=== PATIENT | female | born 1950 | race Caucasian/White ===

== ENCOUNTER 2016-09-09 07:57 | Inpatient (IN) | payer OTHER ==
[2016-07-22 11:51] VITALS: BMI 24.0
--- NOTE | 2016-07-22 12:25 | PAT Medication Instructions ---
Service Date Jul 22, 2016. Current Home Medication List Acetaminophen (Tylenol), 1,000 MG PO TID PRN for RN Arnica (Arnica Tincture), 1 DOSE TOP DAILY PRN for RN Ascorbic Acid (Vitamin C), 1,000 MG PO QAM Aspirin (Aspirin Ec), 81 MG PO QAM Atorvastatin (Lipitor), 20 MG PO QAM B-Complex Vitamins (Vitamin B Complex), 1 TAB PO QAM Calcium Carbonate-Vitamin D (Calcium + D), 1 TAB PO QAM Cyanocobalamin (Vitamin B12), 1,000 MCG PO QAM Esomeprazole Magnesium (Nexium), 40 MG PO QAM Fexofenadine Hcl (Kristen Allergy), 1 TAB PO QAM PRN for RN Hydrocodone/Acetaminophen 7.5MG/325MG ([place] 7.5MG/325MG), 1 TAB PO Q12H PRN for N Ibuprofen (Advil), 400 MG PO TID PRN for RN Methocarbamol (Robaxin), 750 MG PO QID PRN for RN Milk Thistle (Silybum Marianum (Milk Thistle), 250 MG PO QAM Misc Natural Products (Osteo Bi-Flex Advanced Do), 1 TAB PO QAM Nutritional Supplements (Estroven), 1 TAB PO QAM [place]-3 Fatty Acids (Fish Oil), 1 TAB PO QAM Valsartan/Hctz (Diovan Hct 320MG/12.5MG), 1 TAB PO QAM Venlafaxine Hcl (Venlafaxine Extended Rel), 75 MG PO TID Medication Instructions For Your Scheduled Surgery - Check with surgeon for instructions: Aspirin (Aspirin Ec), 81 MG PO QAM Ibuprofen (Advil), 400 MG PO TID PRN for RN - Hold the following medications 2 weeks prior to surgery: [place]-3 Fatty Acids (Fish Oil), 1 TAB PO QAM Milk Thistle (Silybum Marianum (Milk Thistle), 250 MG PO QAM - Hold the following medications 24 hours prior to surgery: Arnica (Arnica Tincture), 1 DOSE TOP DAILY PRN for RN - Hold the following medications the morning of surgery: Valsartan/Hctz (Diovan Hct 320MG/12.5MG), 1 TAB PO QAM Nutritional Supplements (Estroven), 1 TAB PO QAM Misc Natural Products (Osteo Bi-Flex Advanced Do), 1 TAB PO QAM Methocarbamol (Robaxin), 750 MG PO QID PRN for RN Fexofenadine Hcl (Kristen Allergy), 1 TAB PO QAM PRN for RN Cyanocobalamin (Vitamin B12), 1,000 MCG PO QAM B-Complex Vitamins (Vitamin B Complex), 1 TAB PO QAM Calcium Carbonate-Vitamin D (Calcium + D), 1 TAB PO QAM Ascorbic Acid (Vitamin C), 1,000 MG PO QAM - Take the following medications the morning of surgery with a sip of water: Venlafaxine Hcl (Venlafaxine Extended Rel), 75 MG PO TID Esomeprazole Magnesium (Nexium), 40 MG PO QAM Atorvastatin (Lipitor), 20 MG PO QAM Acetaminophen (Tylenol), 1,000 MG PO TID PRN for RN (if needed) Hydrocodone/Acetaminophen 7.5MG/325MG ([place] 7.5MG/325MG), 1 TAB PO Q12H PRN for N (okay to take up to 4 hours prior to surgery if needed) - Take the following medications as scheduled the night before surgery: Venlafaxine Hcl (Venlafaxine Extended Rel), 75 MG PO TID Methocarbamol (Robaxin), 750 MG PO QID PRN for RN (if needed) Fexofenadine Hcl (Kristen Allergy), 1 TAB PO QAM PRN for RN (if needed) Acetaminophen (Tylenol), 1,000 MG PO TID PRN for RN (if needed) Hydrocodone/Acetaminophen 7.5MG/325MG ([place] 7.5MG/325MG), 1 TAB PO Q12H PRN for N (if needed) If you have any questions please call us at [phone] (Heather Bergman PA-C) or [phone] or [phone]
--- NOTE | 2016-07-22 12:53 | DIAGNOSTIC IMAGING REPORT ---
CHEST 2 VIEWS ROUTINE CLINICAL HISTORY: Preoperative chest COMPARISON STUDY: No previous studies for comparison. FINDINGS: The cardiac and mediastinal contours are normal. There is no evidence of focal pulmonary consolidation. There is no evidence of failure. No pleural effusions are visualized.[ IMPRESSION: No active disease in the chest. Electronically signed by: Ramírez Trujillo M.D. 07/22/2016 12:51 PM
[2016-07-22 13:23] LABS: MANUAL MICROSCOPIC REQUIRED? NO; REVIEW REQ? NO; URINE APPEARANCE CLEAR (CLEAR); URINE BILIRUBIN NEG (NEG); URINE COLOR DK YELLOW; URINE NITRITE NEG (NEG); URINE SPECIFIC GRAVITY 1.013 (1.000-1.030); UROBILINOGEN NEG (NEG)
[2016-07-22 13:24] LABS: BASO % 0.3 %; BASO ABS # 0.03 K/uL (0-0.2); COMPLETE YES; HEMATOCRIT 35.8 % (37-47); IG% 0.2 %; LYMPH ABS # 2.04 K/uL (1.2-3.4); MEAN CELL VOLUME 96.5 fL (80-100); MEAN CORPUSCULAR HEMOGLOBIN 33.7 pg (25-34); MEAN CORPUSCULAR HGB CONC 34.9 g/dl (32-36); MEAN PLATELET VOLUME 8.7 fL (7.4-10.4); MONO % 7.1 %; NEUT % 70.4 %; PLATELET COUNT 410 K/uL (130-400); RED BLOOD COUNT 3.71 M/uL (4.2-5.4); WHITE BLOOD COUNT 9.72 K/uL (4.8-10.8)
[2016-07-22 13:32] LABS: PARTIAL THROMBOPLASTIN RATIO 0.9; PROTHROMBIN TIME (PATIENT) 10.5 SECONDS (9.0-12.0)
[2016-07-22 13:43] LABS: BUN/CREATININE RATIO 28.6 (10-20); CALCIUM 9.4 mg/dl (8.5-10.1); CREATININE 0.69 mg/dl (0.60-1.20); POTASSIUM 4.4 mmol/L (3.5-5.1)
--- NOTE | 2016-08-11 07:40 | HISTORY & PHYSICAL EXAMINATION ---
DATE OF ADMISSION: 08/12/2016 CHIEF COMPLAINT: Failed right shoulder hemiarthroplasty. HISTORY OF PRESENT ILLNESS: Sherita is a 65-year-old female who fell and injured her shoulder in February 2015. She was treated at an outside institution with a fracture hemiarthroplasty of the right shoulder. Unfortunately, the rotator cuff had failed and since had significant pain in the right shoulder. After over a year of conservative treatment, she elected to proceed with a removal of the hemiarthroplasty and conversion to reverse total shoulder arthroplasty. She understands the risks, benefits, alternatives to the procedure and has elected to proceed. PAST MEDICAL HISTORY: Significant for depression, hyperlipidemia, hypertension, spinal stenosis. PAST SURGICAL HISTORY: Significant for ruptured disc at L5, hammertoe correction of the right foot, right shoulder fracture or fracture hemiarthroplasty left carpal tunnel release and lumbar laminectomy. ALLERGIES: PREVACID, SULFA, PROTONIX. MEDICATIONS: Include vitamin B12 1000 mg daily, Nexium 40 mg daily, Kristen 180 mg as needed, Vicodin as needed for pain, methocarbamol 750 mg 4 times a day as needed, valsartan/HCTZ 320/12.5 daily, Effexor XR 75 mg 3 times a day, Lipitor 20 mg daily, and aspirin 81 mg daily. FAMILY HISTORY: Noncontributory. SOCIAL HISTORY: She is , has 3 more drinks a day and is moderately active. REVIEW OF SYSTEMS: The patient complains of right shoulder pain. All other pertinent review of systems are negative. PHYSICAL EXAMINATION: GENERAL: She is awake, alert and oriented x3. She is in no apparent distress. She is very pleasant. HEAD, EYES, EARS, NOSE, AND THROAT: Pupils are equal, round and reactive to light. Extraocular motion intact. Oral mucosa is pink and moist. VITAL SIGNS: Regular rate per radial pulse. LUNGS: Sarah symmetrically bilaterally with no audible breath sounds. ABDOMEN: Soft, nontender, nondistended. MUSCULOSKELETAL: On physical examination of the right shoulder, she does have a slight decreased active range of motion about 130 degrees of forward flexion and 30 degrees of abduction. She has 4/5 muscle strength with full can testing, 5/5 motion with external rotation. Negative bear hug and belly press test. She has a well-healed incision from previous surgery. No signs of infection. X-rays from an outside institution does show that she has significant superior migration of the humeral component and failure of the rotator cuff. It appears to be a [employer] Unite humeral prosthesis. IMPRESSION: Failed right shoulder hemiarthroplasty. PLAN: Will proceed with a conversion to a reverse total shoulder arthroplasty. Postoperatively, she will be placed in an arm sling and kept overnight for postoperative medical management.
--- NOTE | 2016-09-08 09:49 | HISTORY & PHYSICAL EXAMINATION ---
DATE OF ADMISSION: 09/09/2016 CHIEF COMPLAINT: Failed right shoulder hemiarthroplasty. HISTORY OF PRESENT ILLNESS: Sherita is a 65-year-old female who fell and injured her shoulder in February 2015. She was treated in an outside institution with the fracture hemiarthroplasty of the right shoulder. Unfortunately, the rotator cuff had failed and since has had significant pain in the right shoulder. After over a year of conservative treatment, she elected to proceed with a removal of hemiarthroplasty and conversion to reverse total shoulder arthroplasty. She understands the risks, benefits, alternatives to procedure and elected to proceed. PAST MEDICAL HISTORY: Significant for depression, hyperlipidemia, hypertension, spinal stenosis. PAST SURGICAL HISTORY: Significant for a ruptured disc at L5, hammertoe correction of the right foot, right shoulder fracture with fracture hemiarthroplasty, a left carpal tunnel release and lumbar laminectomy. ALLERGIES: PREVACID, SULFA, PROTONIX. MEDICATIONS: Include vitamin B12 1000 mg daily, Nexium 40 mg daily, Kristen 180 mg as needed, Vicodin as needed for pain, methocarbamol 750 mg 4 times a day as needed, valsartan/hydrochlorothiazide 320/12.5 mg daily, Effexor XR 75 mg 3 times a day, Lipitor 20 mg daily, and aspirin 81 mg daily. FAMILY HISTORY: Noncontributory. SOCIAL HISTORY: She is , has 3 more drinks a day and is moderately active. REVIEW OF SYSTEMS: She complains of right shoulder pain. All other pertinent review of systems are negative. PHYSICAL EXAMINATION: GENERAL: She is awake, alert and oriented x3. She is in no apparent distress. She is very pleasant. HEENT: Pupils are equal, round and reactive to light. Extraocular motion intact. Oral mucosa is pink and moist. HEART: Regular rate per radial pulse. LUNGS: Sarah symmetrically bilaterally with no audible breath sounds. ABDOMEN: Soft, nontender, nondistended. MUSCULOSKELETAL: On physical examination of the right shoulder, she does have decreased active range of motion about 130 degrees of forward flexion and 30 degrees of abduction. She has 4/5 motion to full can testing, 5/5 motion with external rotation. Negative bear hug and belly press test. She has a well-healed incision from previous surgery. No signs of infection. IMAGING DATA: X-rays from an outside institution do show she has significant superior migration of the humeral component and failure of the rotator cuff. It appears to be a [employer] Unite humeral prosthesis. IMPRESSION: Failed right shoulder hemiarthroplasty. PLAN: We will proceed with conversion to reverse shoulder arthroplasty. Postoperatively, she will be placed in an arm sling and kept overnight for postoperative medical management.
[2016-09-09] VITALS (7 sets, daily range): BP systolic 90–146; BP diastolic 58–76; PULSE 82–96; TEMP 36.5–37.2; O2SAT 93–98; Ht 165.1 cm; Wt 67.9 kg
[~2016-09-09] VITALS: Ht 165.1 cm; Wt 67.9 kg
[2016-09-09] MEDS: TRANEXAMIC ACID INJ 1,000 MG in SODIUM CHLORIDE 0.9% 100ML 100 ML IV SCH ×2 (06:30→08:56)
--- NOTE | 2016-09-09 07:40 | History & Physical Bridge Note ---
H&P Re-Evaluation Bridge Note: I have examined the patient, reviewed the History & Physical and in the interval since the performance of the History & Physical I have noted the following changes of clinical significance: No changes noted
[~2016-09-09 07:57] MED LIST: ACET-1256 PO; ACETAMINOPHEN 500 MG TAB PO SCH; ARNI20TI TOP; ASCO10003 PO; ASPI81TA28 PO; ATOR-22 PO; B-COTAB18 PO; BUPIVACAINE 0.25% 30 ML VIAL ONE; CALC600T9 PO; CEFAZOLIN 2000 MG/60 ML D5W 60 ML IV SCH; CYAN100020 PO; FAMOTIDINE 20 MG TAB PO SCH; FEXO1TAB49 PO; GABAPENTIN 300 MG CAP PO SCH; HYDR-3983 PO; IBUP-1050 PO; LACTATED RINGER'S 1000ML 1,000 ML IV SCH; LACTATED RINGER'S 1000ML IV SCH; METH-307 PO; MILK250C PO; MISCTAB78 PO; NUTRTAB40 PO; NXM/40 PO; OMEGCAP2 PO; ROPIVACAINE 5MG/ML 30 ML 150 MG, BUPIVACAINE/EPINEPHR 0.5% MPF 30 ML, KETOROLAC TROMETH... INFIL SCH; TRANEXAMIC ACID INJ 1,000 MG in SODIUM CHLORIDE 0.9% 100ML 100 ML IV SCH; VALS-10 PO; VENL75CA73 PO
[2016-09-09] MEDS ORDERED: BACITRACIN 50000 UNIT VIAL ONE (08:38)
[2016-09-09] MEDS ORDERED: BUPIVACAINE/EPINEPHRINE 0.5% MPF 1:200,000 30 ML VIAL ONE (08:38)
[2016-09-09] MEDS ORDERED: EpHEDrine SULFATE INJ 50 MG/ML AMP IV PRN ×2 (08:45→13:00)
[2016-09-09] MEDS ORDERED: PHENYLEPHRINE 100MCG/ML 5ML SYR IV PRN (08:45)
[2016-09-09] MEDS ORDERED: HYDROmorphone INJ 2 MG/ML SYR/VIAL IV PRN (08:45)
[2016-09-09] MEDS ORDERED: ATROPINE SULFATE 0.1 MG/ML 5ML SYR IV PRN ×2 (08:45→13:00)
[2016-09-09] MEDS ORDERED: ONDANSETRON INJ 2 MG/ML 2 ML VIAL IV PRN ×3 (08:45→14:00)
[2016-09-09] MEDS ORDERED: DEXAMETHASONE SOD INJ 4 MG/ML VIAL ONE (08:58)
[2016-09-09] MEDS ORDERED: NEOSTIGMINE METHYLSULFATE 5 MG/5 ML SYR ONE (08:58)
[2016-09-09] MEDS ORDERED: PROPOFOL IV EMULSION 10 MG/ML 20 ML VIAL IV ONE (08:58)
[2016-09-09] MEDS ORDERED: ONDANSETRON INJ 2 MG/ML 2 ML VIAL ONE (08:58)
[2016-09-09] MEDS ORDERED: GLYCOPYRROLATE INJ 0.2 MG/ML VIAL ONE (08:58)
[2016-09-09] MEDS ORDERED: LIDOCAINE HCL 2% 2 ML VIAL (20MG/ML) ONE (08:58)
[2016-09-09] MEDS ORDERED: ROCURONIUM BROMIDE 10 MG/ML 5 ML VIAL ONE (08:58)
[2016-09-09] MEDS ORDERED: FENTANYL CITRATE INJ 50 MCG/1 ML 2 ML VIAL ONE ×2 (08:59→10:04)
[2016-09-09] MEDS ORDERED: MIDAZOLAM HCL 1 MG/ML 2ML VIAL ONE ×2 (08:59→10:04)
[2016-09-09] MEDS ORDERED: BUPIVACAINE 0.5 % 5 MG/1 ML PF 10ML VIAL ONE (09:07)
[2016-09-09] MEDS ORDERED: MEPIVACAINE HCL 1.5% 30 ML VIAL ONE (09:08)
[2016-09-09] MEDS ORDERED: ORTHO JOINT ANESTHETIC ONE (09:40)
[2016-09-09] MEDS ORDERED: FLUMAZENIL 0.1 MG/1 ML 10 ML VIAL IV PRN (13:00)
[2016-09-09] MEDS ORDERED: PROMETHAZINE HCL INJ 12.5 MG in SODIUM CHLORIDE 0.9% 50ML 50 ML IV PRN (13:00)
[2016-09-09] MEDS ORDERED: NALOXONE HCL 0.4 MG/1 ML VIAL/CARP IV PRN ×2 (13:00→14:00)
[2016-09-09] MEDS ORDERED: LABETALOL HCL IV 5 MG/ML 20ML IV PRN (13:00)
[2016-09-09] MEDS ORDERED: SOD PHOSPHATE/SOD BIPHOSPHATE ENEMA 132 ML BTL PR PRN (14:00)
[2016-09-09] MEDS ORDERED: MAGNESIUM HYDROXIDE SUSP 30 ML UDC PO PRN (14:00)
[2016-09-09] MEDS ORDERED: METOCLOPRAMIDE HCL INJ 5 MG/ML 2 ML VIAL IV PRN (14:00)
[2016-09-09] MEDS ORDERED: BISACODYL 10 MG SUPP PR PRN (14:00)
[2016-09-09] MEDS ORDERED: METHOCARBAMOL 750 MG TAB PO PRN (14:00)
[2016-09-09] MEDS ORDERED: FEXOFENADINE HCL 180 MG TAB PO PRN (14:00)
--- NOTE | 2016-09-09 14:59 | Anesthesiology Progress Note ---
Anesthesia Post Op Note Date & Time Sep 09, 2016 at 14:59 Vital Signs Pain Intensity: 0 Vital Signs Past 12 Hours Date Time Temp Pulse Resp B/P Pulse Ox O2 Delivery O2 Flow Rate FiO2 09/09/16 14:55 36.2 82 16 107/52 100 Nasal Cannula 2 09/09/16 14:45 87 16 96/41 100 Mask 5 09/09/16 14:35 81 18 110/53 100 Mask 10 09/09/16 14:25 89 20 109/56 100 Mask 10 09/09/16 14:21 36.0 92 20 96/53 100 Mask 10 09/09/16 08:28 36.5 84 16 146/76 96 Room Air Notes Mental Status: alert / awake / arousable, participated in evaluation Pt Amnestic to Procedure: Yes Nausea / Vomiting: adequately controlled Pain: adequately controlled Airway Patency, RR, SpO2: stable & adequate BP & HR: stable & adequate Hydration State: stable & adequate Anesthetic Complications: no major complications apparent
--- NOTE | 2016-09-09 15:11 | DIAGNOSTIC IMAGING REPORT ---
RIGHT SHOULDER MIN 2 VIEWS ROUTINE CLINICAL HISTORY: Post shoulder surgery Right COMPARISON STUDY: None. FINDINGS: 3 views of the right shoulder. There is a reverse right total shoulder arthroplasty. The hardware appears intact. Surgical drains are in place. No fracture or dislocation. Ossific densities adjacent to the humeral neck likely represent postoperative change. IMPRESSION: Reversal right total shoulder arthroplasty. The hardware appears intact. Electronically signed by: Marcelino Gan M.D. 09/09/2016 3:10 PM Dictated Date/Time: 09/09/2016 3:07 PM
--- NOTE | 2016-09-09 15:43 | [facility] Post Operative Brief Note ---
Immediate Operative Summary Operative Date Sep 09, 2016. Pre-Operative Diagnosis Failed right shoulder hemiarthroplasty Post-Operative Diagnosis Failed Right Shoulder Hemiarthroplasty Procedure(s) Performed Right Shoulder Hemiarthroplasty Conversion to Fracture Reverse Total Shoulder Arthroplasty Surgeon Dr. Josh Torres Circuit Designer Surgeon(s) Segun Garner PA-C Estimated Blood Loss 350ML Findings as above Specimens A. Failed explant hardware - right humeral head Complication(s) None Disposition Recovery Room / PACU
--- NOTE | 2016-09-09 15:58 | Discharge Instructions ---
Discharge Instructions Admission Reason for Admission: Right Shoulder Full Thickness Rtc Tear, Joint Pain Discharge Discharge Diagnosis / Problem: Right reverse total shoulder Discharge Goals Goal(s): Decrease discomfort, Improve function Activity Recommendations Activity Limitations: as noted below Shower/Bathe: may shower/bathe in 3 days sling for 3 weeks, may shower on Monday, leave glue dressing in place until seen in office . Instructions / Follow-Up Instructions / Follow-Up in [address] Torres Current Hospital Diet Patient's current hospital diet: Regular Diet Discharge Diet Recommended Diet: Regular Diet Procedures Procedures Performed: Right Shoulder Hemiarthroplasty Conversion to Fracture Reverse Total Shoulder Arthroplasty Pending Studies Studies pending at discharge: no Medical Emergencies . Who to Call and When: Medical Emergencies: If at any time you feel your situation is an emergency, please call 911 immediately. . Non-Emergent Contact Non-Emergency issues call your: Surgeon Call Non-Emergent contact if: wound has increased drainage, wound has increased redness . "Provider Documentation" section prepared by Josh Torres. VTE Core Measure Inpt VTE Proph given/why not?: Treatment not indicated
[2016-09-09] MEDS: HYDROCODONE/ACETAMINOPHEN 7.5/325MG TAB PO PRN (16:13)
--- NOTE | 2016-09-09 16:21 | OPERATIVE REPORT ---
DATE OF OPERATION: 09/09/2016 PREOPERATIVE DIAGNOSIS: Failed right hemiarthroplasty. POSTOPERATIVE DIAGNOSIS: Same. PROCEDURE: Removal of right shoulder hemiarthroplasty and conversion to reverse right total shoulder arthroplasty. SURGEON: Dr. Josh Torres. MOTOR VEHICLE SALESPERSON: Torres Garner PA-C, whose assistance was necessary for positioning the arm and helping with instrumentation. ANESTHESIA: General with a right interscalene nerve block. COMPLICATIONS: None. CONDITION: Stable to PACU. INDICATIONS: Sherita is a pleasant 65-year-old female who fell sustaining a fracture to her right shoulder about 2 years ago. She underwent a right shoulder hemiarthroplasty at outside institution. Unfortunately, she was not progressing well, her symptoms were worsening, she had very little range of motion, she came to my office for a second opinion and x-rays showed complete failure of the rotator cuff. She elected to undergo conversion to a reverse shoulder arthroplasty. OPERATION AND FINDINGS: On 09/09/2014 she arrived at [facility] for the above procedure. She was seen in the preoperative holding area and the operative extremity was identified and signed. She was given a preoperative antibiotic and a right interscalene nerve block. She was taken back to the operating room, laid on the table in supine position and put under general anesthesia. She was then put into the beachchair position. The right shoulder was prepped and draped in sterile fashion. Time-out was done and the patient and operative extremity was properly identified. A deltopectoral approach was used. I went directly over the old incision. The dissection was taken down through the fascia. A significant time was spent at this portion of the procedure because of increased scar tissue formation. There was a lot of scarring throughout the deltopectoral interval and through the clavipectoral fascia. A significant time was spent developing the interval planes being sure not to disrupt any neurovascular structures or disturb any of the deltoid musculature or muscles. The old lesser tuberosity fracture was actually opened up and the lesser tuberosity was taken down. The proximal humerus was exposed. The humeral head was removed. At first, an intention was made to remove the modular component to convert to a hemiarthroplasty; however, it was felt the stem was too high, so the entire humeral prosthesis was removed. The greater tuberosity was then dissected out. It was not fully attached to the humerus. It was tagged with #5 FiberWire sutures. The glenoid was then exposed, time was spent doing a complete circumferential capsular and labral release. A guide pin was sent down the center of the glenoid at 10 degrees of inclination. A 25 mm baseplate was reamed and then the baseplate was impacted into place. A 30 mm central screw was placed. I was able to get excellent bite. A superior and anterior locking screw was placed. An inferior screw was attempted but had no purchase. A 36 mm eccentric glenosphere was then impacted into place. The proximal humerus was then exposed. Sequential reaming up to a size 12 reamer was done. A trial 12 mm fracture stem was placed. A standard humeral tray was placed, the shoulder was reduced, brought through a full range of motion and felt to be stable. The final 10-mm implant was then cemented into place. I just put the cement around the proximal portion of the stem, there should be no cement distally. The greater and lesser tuberosities were then tied with a #5 FiberWire around the prosthesis. I was able to get a nice fixation of the teres minor and infraspinatus as well as the subscapularis. The entire joint was then irrigated with 3 liters of normal saline with bacitracin. The surrounding soft tissues were injected with 100 mL of an orthopedic pain control cocktail. A drain was placed. Skin was then closed with 2-0 Vicryl and a 3-0 V-Loc suture. A Prineo dressing was placed. She was then placed in a soft dressing and regular arm sling. She was then extubated, transferred to a [facility] and taken to the postanesthesia care unit in stable condition. She tolerated the procedure well. IMPLANTS USED: I used a [employer] comprehensive reverse right total shoulder arthroplasty with a size 10 mm fracture stem that was cemented in the proximal aspect of the stem with a standard 44 mm humeral tray and bearing, a 36 mm eccentric glenosphere, a 25 mm mini baseplate, a 30 mm central screw and 2 peripheral locking screws. This case took a significantly increased time from normal reverse shoulder arthroplasty. There was a lot of scar tissue going down and the exposure took increased time. I attest to the content of the Intraoperative Record and any orders documented therein. Any exceptio ns are noted below.
[2016-09-09] MEDS: VENLAFAXINE HCL XR 75 MG CAPXR PO SCH ×2 (16:55→20:58)
[2016-09-09] MEDS: KETOROLAC TROMETHAMINE 30 MG/ML VIAL IV. SCH ×2 (16:56→23:58)
[2016-09-09] MEDS: D5W AND 1/2NSS + 20MEQ KCL 1,000 ML IV SCH (16:56)
[2016-09-09] MEDS: CEFAZOLIN IV 2,000 MG in DEXTROSE 5% 50ML 50 ML IV SCH (17:56)
[2016-09-09] MEDS: SENNA 8.6 MG TAB PO SCH (20:58)
[2016-09-09] MEDS: DOCUSATE SODIUM 100 MG CAP PO SCH (20:58)
[2016-09-09] MEDS: MoRPHine SULFATE 2 MG/ML CARP IV PRN (23:59)
[2016-09-10] MEDS: CEFAZOLIN IV 2,000 MG in DEXTROSE 5% 50ML 50 ML IV SCH (01:55)
[2016-09-10] MEDS: MoRPHine SULFATE 2 MG/ML CARP IV PRN ×2 (01:56→06:05)
[2016-09-10] MEDS: D5W AND 1/2NSS + 20MEQ KCL 1,000 ML IV SCH (02:01)
[2016-09-10 04:15] VITALS: BP 98/62; PULSE 86; TEMP 37.2; O2SAT 94
[2016-09-10] MEDS: HYDROCODONE/ACETAMINOPHEN 7.5/325MG TAB PO PRN ×5 (04:46→22:18)
[2016-09-10 05:43] LABS: HEMATOCRIT 26.4 % (37-47); MEAN CELL VOLUME 97.4 fL (80-100); MEAN CORPUSCULAR HEMOGLOBIN 33.6 pg (25-34); MEAN CORPUSCULAR HGB CONC 34.5 g/dl (32-36); MEAN PLATELET VOLUME 8.3 fL (7.4-10.4); PLATELET COUNT 247 K/uL (130-400); RED BLOOD COUNT 2.71 M/uL (4.2-5.4); WHITE BLOOD COUNT 12.23 K/uL (4.8-10.8)
[2016-09-10] MEDS: KETOROLAC TROMETHAMINE 30 MG/ML VIAL IV. SCH ×3 (06:00→18:05)
[2016-09-10 06:11] LABS: BUN/CREATININE RATIO 12.4 (10-20); CALCIUM 8.1 mg/dl (8.5-10.1); CREATININE 0.66 mg/dl (0.60-1.20); POTASSIUM 3.6 mmol/L (3.5-5.1)
[2016-09-10 07:24] VITALS: BP 95/59; PULSE 79; TEMP 36.8; O2SAT 91
[2016-09-10] MEDS: VALSARTAN/HCTZ 320/12.5 MG TAB PO SCH (09:00)
[2016-09-10] MEDS: PANTOprazole SOD 40 MG TAB PO SCH (09:00)
--- NOTE | 2016-09-10 09:04 | PROGRESS NOTE ---
DATE: 09/10/2016 DATE: 09/10/2016. CHIEF COMPLAINT: Status post revision to reverse right shoulder arthroplasty postop day #1. PROGRESS: Sherita was seen and examined at bedside today. Overall, she is doing fairly well. She is having a lot of soreness in her shoulder. She had no acute events overnight and has no other complaints. PHYSICAL EXAMINATION: RIGHT SHOULDER: The dressing is clean and dry and the drain is to suction. Her radial, median and ulnar nerves were checked and intact at her wrist. She is wearing her right arm sling as instructed. LABORATORY DATA: She has H\T\H today 9.1 and 26.4. Her vital signs were all stable on room air and she is voiding on her own. Her Hemovac put out 350 mL. X-rays postoperatively of the right shoulder show the prosthesis to be in anatomic alignment without any evidence of fracture, dislocation or loosening. IMPRESSION: Status post conversion to reverse right total shoulder arthroplasty postop day #1. PLAN: At this point, she is doing about as well as expected. She is having some pain. I changed her hydrocodone to every 6 hours. We will keep her on the Toradol and the morphine as well. We will keep her throughout the day today for therapy and pain control and possibly discharge to home tomorrow.
[2016-09-10] MEDS: VENLAFAXINE HCL XR 75 MG CAPXR PO SCH ×3 (09:17→20:55)
[2016-09-10] MEDS: DOCUSATE SODIUM 100 MG CAP PO SCH ×2 (09:17→20:55)
[2016-09-10] MEDS: ASPIRIN 81 MG ECTAB PO SCH (09:17)
[2016-09-10] MEDS: ATORVASTATIN 20 MG TAB PO SCH (09:17)
[2016-09-10] MEDS: MULTIVITAMIN TAB PO SCH (09:17)
[2016-09-10] MEDS ORDERED: NURSING VERBAL MED ORDER ONE (09:30)
[2016-09-10 15:10] VITALS: BP 91/54; PULSE 76; TEMP 37.1; O2SAT 95
[2016-09-10] MEDS: SENNA 8.6 MG TAB PO SCH (20:55)
[2016-09-10 21:06] LABS: URINE APPEARANCE CLEAR (CLEAR); URINE BILIRUBIN NEG (NEG); URINE COLOR RED; URINE EPITHELIAL CELL AUTO 0-5 /lpf (0-5); URINE NITRITE POS (NEG); URINE PH 5.5 (4.5-7.5); URINE SPECIFIC GRAVITY 1.004 (1.000-1.030); UROBILINOGEN NEG (NEG); ZZUR CULT IF INDIC CLEAN CATCH NO
[2016-09-10 21:07] LABS: MANUAL MICROSCOPIC REQUIRED? NO; REVIEW REQ? NO
[2016-09-10 23:35] VITALS: BP 113/71; PULSE 89; TEMP 37.4; O2SAT 95
[2016-09-11] MEDS: KETOROLAC TROMETHAMINE 30 MG/ML VIAL IV. SCH ×3 (00:11→12:13)
[2016-09-11 07:31] VITALS: BP 105/66; PULSE 95; TEMP 37.2; O2SAT 94
[2016-09-11] MEDS: PANTOprazole SOD 40 MG TAB PO SCH (08:09)
[2016-09-11] MEDS: DOCUSATE SODIUM 100 MG CAP PO SCH (08:09)
[2016-09-11] MEDS: VALSARTAN/HCTZ 320/12.5 MG TAB PO SCH (08:10)
[2016-09-11] MEDS: ASPIRIN 81 MG ECTAB PO SCH (08:12)
[2016-09-11] MEDS: MULTIVITAMIN TAB PO SCH (08:12)
[2016-09-11] MEDS: VENLAFAXINE HCL XR 75 MG CAPXR PO SCH ×2 (08:12→13:45)
[2016-09-11] MEDS: ATORVASTATIN 20 MG TAB PO SCH (08:12)
[2016-09-11] MEDS: HYDROCODONE/ACETAMINOPHEN 7.5/325MG TAB PO PRN ×2 (08:13→12:14)
[2016-09-11 14:31] VITALS: BP 105/66; PULSE 95; TEMP 37.2; O2SAT 94
[2016-09-11] MEDS ORDERED: HYDR-3983 PO (15:05)
--- NOTE | 2016-09-11 16:30 | PROGRESS NOTE ---
DATE: 09/11/2016 CHIEF COMPLAINT: Status post revision right shoulder arthroplasty, postop day #2. PROGRESS: Sherita was seen and examined at bedside today. Overall, she is doing very well. Her pain is much better controlled than it was yesterday. She has been working well with physical therapy. She has no complaints. PHYSICAL EXAMINATION: Her radial, median and ulnar nerves were checked and intact at her wrist. Her axillary nerve was not definitively checked yet. Her dressing has been changed and the drain has been pulled. She is wearing her sling as instructed. IMPRESSION: Status post revision right shoulder arthroplasty, postop day #2. PLAN: At this point, she is doing very well. Her pain is better controlled on the oral Lortabs given more frequently. I am going to discharge her to home today.
--- NOTE | 2016-09-12 00:51 | DISCHARGE SUMMARY ---
DISCHARGE DIAGNOSIS: Failed right shoulder hemiarthroplasty. PROCEDURE: Removal of right shoulder hemiarthroplasty and conversion to a reversed shoulder arthroplasty on September 09, [address] Josh Torres. DISCHARGE INSTRUCTIONS: 1. Right arm sling for 3 weeks. 2. [place] 7.5/325 every 4 hours as needed for pain. 3. Tylenol 1000 mg 3 times a day as needed. 4. Arnica 20% drops daily. 5. Vitamin C 1000 mg daily. 6. Aspirin 81 mg daily. 7. Lipitor 20 mg daily. 8. Vitamin D 1 tab daily. 9. Vitamin B12 1000 mcg daily. 10. Nexium 40 mg daily. 11. Kristen 180 mg as needed. 12. Advil 400 mg as needed. 13. Robaxin 750 mg 4 times a day as needed. 14. Diovan 320/12.5 daily. 15. Effexor 75 mg 3 times a day. 16. Follow up with Dr. Torres in 2 weeks. 17. Call the office of Dr. Torres with any questions or concerns. HOSPITAL COURSE: Sherita is a pleasant 65-year-old female who sustained a fracture to her right proximal humerus. She underwent a fracture hemiarthroplasty at an outside institution about 18 months ago. Unfortunately, she went on to fail the rotator cuff. She had a poor outcome and presented to my office for a second opinion. I elected to remove the hemiarthroplasty and proceed with reversed shoulder replacement. On 09/09/2016 she arrived at [facility] and underwent the above procedure without complications. She had a general anesthetic and a right interscalene nerve block. Postoperatively, she was discharged to general orthopedic floor. On postop day #1, her H\T\H was stable at 9.1 and 26.4. She was having a lot of soreness in her shoulder. She did not feel ready to go home yet. She was seen by physical therapy as well. On postop day #2, her pain was better controlled. She continued to work well with physical therapy and was subsequently discharged to home with the above instructions.
== END 2016-09-11 15:37 | disposition home or self-care (01) | DRG 483 ==
LOC: ENRESERVTM → ENRESERVDT → C.ACU 07:57 → C.3E 08:25
PROVIDERS: ADMIT Orthopaedic Surgery; ATTEND Orthopaedic Surgery
PROC: 0RRJ00Z Replacement of Right Shoulder Joint with Reverse Ball and Socket Synthetic Substitute, Open Approach (ICD-10-PCS; principal; 2016-09-09 10:25)
PROC: 0RPJ0JZ Removal of Synthetic Substitute from Right Shoulder Joint, Open Approach (ICD-10-PCS; principal; 2016-09-09 10:25)
DX: T84.098A Other mechanical complication of other internal joint prosthesis, initial encounter (principal); Z96.611 Presence of right artificial shoulder joint; Y83.1 Surgical operation with implant of artificial internal device as the cause of abnormal reaction of the patient, or of later complication, without mention of misadventure at the time of the procedure; I10 Essential (primary) hypertension; E78.5 Hyperlipidemia, unspecified; F32.9 Major depressive disorder, single episode, unspecified; Z79.82 Long term (current) use of aspirin; Z79.899 Other long term (current) drug therapy; Z88.2 Allergy status to sulfonamides; Z88.8 Allergy status to other drugs, medicaments and biological substances

== ENCOUNTER 2021-03-26 05:28 | Observation (INO) ==
--- NOTE | 2021-03-05 15:03 | PAT Medication Instructions ---
Medication Instructions Date of Service March 05, 2021 Home Medications Medication Instructions Recorded Bran Waters #1 ea 03/02/21 aspirin 81 mg tablet,delayed release (Adult Aspirin Regimen) 81 mg PO QAM atorvastatin 20 mg tablet (Lipitor) 20 mg PO PM buspirone 5 mg tablet 5 mg PO PM celecoxib 200 mg capsule 200 mg PO BID esomeprazole magnesium 40 mg capsule,delayed release (Nexium) 40 mg PO QAM fluticasone propionate 50 mcg/actuation nasal spray,suspension (Children's Flonase Allergy Relief) 1 spray INTRANASAL DAILY hydroxychloroquine 200 mg tablet 400 mg PO QAM loratadine 10 mg tablet (Claritin) 10 mg PO QAM methocarbamol 750 mg tablet 750 mg PO Q4H valsartan 320 mg-hydrochlorothiazide 12.5 mg tablet (Diovan HCT) 1 tab PO QAM venlafaxine 75 mg tablet 75 mg PO TID Mullein 1 dose PO DAILY ascorbic acid (vitamin C) 1,000 mg tablet (Vitamin C) 1 g PO QAM calcium citrate 200 mg (950 mg) tablet 200 mg PO BID cholecalciferol (vitamin D3) 50 mcg (2,000 unit) tablet (Vitamin D3) 50 mcg PO DAILY hydrocodone 5 mg-acetaminophen 325 mg tablet 1 tab PO Q4H PRN milk thistle 200 mg capsule 200 mg PO DAILY multivitamin 1 tab PO QAM omega-3 fatty acids 1,000 mg PO DAILY ASK your surgeon for instructions celecoxib 200 mg capsule 200 mg PO BID ASK your prescriber and surgeon hydroxychloroquine 200 mg tablet 400 mg PO QAM STOP taking 2 weeks before surgery (or as soon as possible if surgery is within 2 weeks) Mullein 1 dose PO DAILY milk thistle 200 mg capsule 200 mg PO DAILY omega-3 fatty acids 1,000 mg PO DAILY DO NOT take the morning of surgery loratadine 10 mg tablet (Claritin) 10 mg PO QAM methocarbamol 750 mg tablet 750 mg PO Q4H valsartan 320 mg-hydrochlorothiazide 12.5 mg tablet (Diovan HCT) 1 tab PO QAM ascorbic acid (vitamin C) 1,000 mg tablet (Vitamin C) 1 g PO QAM calcium citrate 200 mg (950 mg) tablet 200 mg PO BID cholecalciferol (vitamin D3) 50 mcg (2,000 unit) tablet (Vitamin D3) 50 mcg PO DAILY multivitamin 1 tab PO QAM Take morning of surgery With a small sip of water, OTHERWISE NOTHING TO EAT OR DRINK AFTER MIDNIGHT: aspirin 81 mg tablet,delayed release (Adult Aspirin Regimen) 81 mg PO QAM (continue as normal unless told otherwise by surgeon) esomeprazole magnesium 40 mg capsule,delayed release (Nexium) 40 mg PO QAM fluticasone propionate 50 mcg/actuation nasal spray,suspension (Children's Flonase Allergy Relief) 1 spray INTRANASAL DAILY venlafaxine 75 mg tablet 75 mg PO TID hydrocodone 5 mg-acetaminophen 325 mg tablet 1 tab PO Q4H PRN (okay to take up to 4 hours prior to surgery if needed) Take evening before surgery atorvastatin 20 mg tablet (Lipitor) 20 mg PO PM buspirone 5 mg tablet 5 mg PO PM methocarbamol 750 mg tablet 750 mg PO Q4H venlafaxine 75 mg tablet 75 mg PO TID calcium citrate 200 mg (950 mg) tablet 200 mg PO BID hydrocodone 5 mg-acetaminophen 325 mg tablet 1 tab PO Q4H PRN (if needed) Other Notes If you have any questions please call us at [phone] or [phone] or [phone] or [phone]
--- NOTE | 2021-03-10 13:29 | Anesthesiology Consultation ---
Date of Service March 10, 2021 Assessment & Plan (1) Encounter for pre-operative examination: Chart Review Chart Review: Acceptable Risk for Surgery (pending preop Covid testing results ) and Patient seen in Pre Admission Testing Per PAT appt on 03/10/21, patient denies any recent travel or large group activities. No known Covid positive contacts or Covid related symptoms. No known Covid infection in the past 90 days. Pt is NOT vaccinated for Covid. Preop Covid testing scheduled 03/24/21 = will await results. Educated on importance of self quarantining, social distancing and wearing mask in public for the patient one week prior to surgery and after Covid testing done Teaching & Discussion Pre-Anesthesia Teaching/Discussion Notes: Instructed NPO after midnight before surgery,except medications with 15 cc of water. Medication instructions provided according to the [facility] guidelines. History Surgery Operation Date: 03/26/21 14:15 Proposed Procedures p Left Anterior Total Hip Arthroplasty - Josh Torres, Height/Weight Height: 5 ft 4 in Weight: 69.9 kg Allergies Allergy/AdvReac Type Severity Reaction Status Date / Time levofloxacin Allergy Unknown "vomiting;diarrhea Verified 03/05/21 10:12 and I passed out" Sulfa (Sulfonamide Allergy Unknown HIVES Verified 03/05/21 10:12 Antibiotics) lansoprazole AdvReac Unknown DIARRHEA Verified 03/05/21 10:12 pantoprazole AdvReac Unknown DIARRHEA Verified 03/05/21 10:12 Medications Home Medications Medication Instructions Recorded Confirmed Last Taken Wheeled Walker #1 ea 03/02/21 03/05/21 Unknown aspirin 81 mg tablet,delayed 81 mg PO QAM 03/02/21 03/05/21 Unknown release (Adult Aspirin Regimen) atorvastatin 20 mg tablet (Lipitor) 20 mg PO PM 03/02/21 03/05/21 Unknown buspirone 5 mg tablet 5 mg PO PM tab 03/02/21 03/05/21 Unknown celecoxib 200 mg capsule 200 mg PO BID 03/02/21 03/05/21 Unknown esomeprazole magnesium 40 mg 40 mg PO QAM 03/02/21 03/05/21 Unknown capsule,delayed release (Nexium) fluticasone propionate 50 1 spray INTRANASAL DAILY 03/02/21 03/05/21 Unknown mcg/actuation nasal spray,suspension (Children's Flonase Allergy Relief) hydroxychloroquine 200 mg tablet 400 mg PO QAM tab 03/02/21 03/05/21 Unknown loratadine 10 mg tablet (Claritin) 10 mg PO QAM 03/02/21 03/05/21 Unknown methocarbamol 750 mg tablet 750 mg PO Q4H tab 03/02/21 03/05/21 Unknown valsartan 320 1 tab PO QAM 03/02/21 03/05/21 Unknown mg-hydrochlorothiazide 12.5 mg tablet (Diovan HCT) venlafaxine 75 mg tablet 75 mg PO TID 03/02/21 03/05/21 Unknown Mullein 1 dose PO DAILY 03/05/21 03/05/21 Unknown ascorbic acid (vitamin C) 1,000 mg 1 g PO QAM 03/05/21 03/05/21 Unknown tablet (Vitamin C) calcium citrate 200 mg (950 mg) 200 mg PO BID 03/05/21 03/05/21 Unknown tablet cholecalciferol (vitamin D3) 50 50 mcg PO DAILY 03/05/21 03/05/21 Unknown mcg (2,000 unit) tablet (Vitamin D3) hydrocodone 5 mg-acetaminophen 325 1 tab PO Q4H PRN 03/05/21 03/05/21 Unknown mg tablet milk thistle 200 mg capsule 200 mg PO DAILY 03/05/21 03/05/21 Unknown multivitamin 1 tab PO QAM 03/05/21 03/05/21 Unknown omega-3 fatty acids 1,000 mg PO DAILY 03/05/21 03/05/21 Unknown oxycodone-acetaminophen 5 mg-325 1 tab PO Q6H PRN #20 tab 03/09/21 Unknown mg tablet (Percocet) Past Medical History Medical History Anxiety Fusion of spine LUMBAR GERD (gastroesophageal reflux disease) Well controlled and stable Hyperlipidemia Hypertension Osteoarthritis Rheumatoid arthritis Seasonal allergies Exercise / Class Metabolic Activity II 4-5 Yardwork/Stairs/Walk up hill (one flight stairs - no chest pain or SOB ) Past Family History Family History Father Diabetes Past Surgical History Surgical History History of bilateral tubal ligation History of carpal tunnel release LEFT History of cataract surgery BILAT History of colonoscopy History of laminectomy LUMBAR History of tonsillectomy History of tooth extraction DENTAL IMPLANTS History of total shoulder replacement RIGHT Hx of hammer toe correction Past Anesthesia History No Hx of Anesthesia Complications and No Family Hx of Anesthesia Complications History of PONV No Hx of PONV and No Hx of Motion Sickness Social History Smoking Status: Never smoker Do You Dip or Chew Tobacco: No Hx Alcohol Use: Yes Alcohol type: beer alcohol intake frequency: 0-2 drinks per day (3-4 beers/day ) Hx Substance Use: No substance use type: does not use Review of Systems Patient denies chest pain, shortness of breath, dyspnea on exertion, cough, wheezing, palpitations. No hx of seizures, stroke, [place], apnea/snoring. No hx of blood clots or blood transfusions Physical Exam Vital Signs VITALS BP 138/83 P 78 TEMP 997.9 SP02 99% RESP 16 Constitutional no acute distress ENMT Mouth: no TMJ clicking Thyromental Distance: > or= 3.5 Finger Breadths (3.5) Mallampati Class: II Right bottom permanent implant Crowns to molars Neck neck extension not limited Respiratory normal respiratory effort; no respiratory distress Auscultation: lungs clear to auscultation bilaterally; no wheezes Cardiovascular Rate/Rhythm: regular rate and regular rhythm Heart Sounds: no murmur Vessels: no carotid bruit Musculoskeletal Spine: no pain with cervical ROM Extremities: extremities normal to inspection Psychiatric Orientation: alert Lab Results Anesthesia Preop Results Results Anesthesia Widget: WBC 7.10 K/uL (4.8-10.8) 03/10/21 Hgb 12.9 g/dL (12.0-16.0) 03/10/21 Hct 38.2 % (37-47) 03/10/21 Plt 518 K/uL (130-400) H 03/10/21 Na 133 mmol/L (136-145) L 03/10/21 K 4.3 mmol/L (3.5-5.1) 03/10/21 Cl 100 mmol/L (98-107) 03/10/21 CO2 29 mmol/L (21-32) 03/10/21 BUN 20 mg/dl (7-18) H 03/10/21 Creat 0.57 mg/dl (0.6-1.2) L 03/10/21 Glucose Level 96 mg/dl (70-99) 03/10/21 PT 10.0 Seconds (9.0-12.0) 03/10/21 PTT 24.6 Seconds (21.0-31.0) 03/10/21 INR 1.0 (0.9-1.1) 03/10/21 Blood Type A Positive 03/10/21 Antibody Screen NEGATIVE 03/10/21 Testing Electrocardiogram Date: 03/10/21 Findings: + NSR @ (75bpm) Normal EKG per cardio Chest X-Ray Date: 03/10/21 Findings: + NAD Cervical Spine Date: 03/10/21 FINDINGS: Lateral, flexion, extension views of the cervical spine were obtained. There is straightening of the cervical spine with 1.5 mm of retrolisthesis of C5 on C6 and C6 on C7. This remains unchanged throughout flexion and extension. There is also a 1.5 mm of anterolisthesis of C4 on C5 which is also unchanged throughout flexion and extension. The C1-C2 interval is intact. Prevertebral soft tissues are within normal limits. No fractures identified. Moderate disc space narrowing and endplate osteophytes at C5-C6 and C6-C7. Moderate facet degenerative changes throughout the majority of the cervical spine. IMPRESSION: Degenerative changes and mild spondylolisthesis as described above. However, the alignment remains intact throughout flexion and extension.
--- NOTE | 2021-03-25 16:41 | History & Physical Report ---
Date of Service March 25, 2021 Assessment & Plan (1) Avascular necrosis of bone of left hip: We will proceed with a left anterior total of arthroplasty. Postoperatively she will be started on aspirin for DVT prophylaxis and kept overnight in the hospital for postoperative medical management. She plans to go to [place] [facility] therapy in [place] upon discharge. History of Present Illness Chief Complaint: Osteoarthritis of the left hip. Primary Care Provider: NO PCP Sherita is a pleasant 70-year-old female whose been dealing with a month-long history of left hip pain. It came on suddenly and has been very severe. X-ray showed signs of arthritis of the hip. An MRI showed diffuse abnormal signal and enhancement in the femoral head and neck. Sed rate and CRP were negative. She is unable to ambulate with the hip. After discussions in the office, she has elected proceed with a left anterior total hip arthroplasty.. Allergies Allergy/AdvReac Type Severity Reaction Status Date / Time levofloxacin Allergy Unknown "vomiting;diarrhea Verified 03/05/21 10:12 and I passed out" Sulfa (Sulfonamide Allergy Unknown HIVES Verified 03/05/21 10:12 Antibiotics) lansoprazole AdvReac Unknown DIARRHEA Verified 03/05/21 10:12 pantoprazole AdvReac Unknown DIARRHEA Verified 03/05/21 10:12 Home Medications Medication Instructions Recorded Confirmed Type Wheeled Walker #1 ea 03/02/21 03/05/21 Rx aspirin 81 mg tablet,delayed 81 mg PO QAM 03/02/21 03/05/21 History release (Adult Aspirin Regimen) atorvastatin 20 mg tablet (Lipitor) 20 mg PO PM 03/02/21 03/05/21 History buspirone 5 mg tablet 5 mg PO PM tab 03/02/21 03/05/21 History celecoxib 200 mg capsule 200 mg PO BID 03/02/21 03/05/21 History esomeprazole magnesium 40 mg 40 mg PO QAM 03/02/21 03/05/21 History capsule,delayed release (Nexium) fluticasone propionate 50 1 spray INTRANASAL DAILY 03/02/21 03/05/21 History mcg/actuation nasal spray,suspension (Children's Flonase Allergy Relief) hydroxychloroquine 200 mg tablet 400 mg PO QAM tab 03/02/21 03/05/21 History loratadine 10 mg tablet (Claritin) 10 mg PO QAM 03/02/21 03/05/21 History methocarbamol 750 mg tablet 750 mg PO Q4H tab 03/02/21 03/05/21 History valsartan 320 1 tab PO QAM 03/02/21 03/05/21 History mg-hydrochlorothiazide 12.5 mg tablet (Diovan HCT) venlafaxine 75 mg tablet 75 mg PO TID 03/02/21 03/05/21 History Mullein 1 dose PO DAILY 03/05/21 03/05/21 History ascorbic acid (vitamin C) 1,000 mg 1 g PO QAM 03/05/21 03/05/21 History tablet (Vitamin C) calcium citrate 200 mg (950 mg) 200 mg PO BID 03/05/21 03/05/21 History tablet cholecalciferol (vitamin D3) 50 50 mcg PO DAILY 03/05/21 03/05/21 History mcg (2,000 unit) tablet (Vitamin D3) hydrocodone 5 mg-acetaminophen 325 1 tab PO Q4H PRN 03/05/21 03/05/21 History mg tablet milk thistle 200 mg capsule 200 mg PO DAILY 03/05/21 03/05/21 History multivitamin 1 tab PO QAM 03/05/21 03/05/21 History omega-3 fatty acids 1,000 mg PO DAILY 03/05/21 03/05/21 History oxycodone-acetaminophen 5 mg-325 1 tab PO Q6H PRN #20 tab 03/22/21 Rx mg tablet (Percocet) Past Med/Surg History Medical History Anxiety Fusion of spine LUMBAR GERD (gastroesophageal reflux disease) Well controlled and stable Hyperlipidemia Hypertension Osteoarthritis Rheumatoid arthritis Seasonal allergies Surgical History History of bilateral tubal ligation History of carpal tunnel release LEFT History of cataract surgery BILAT History of colonoscopy History of laminectomy LUMBAR History of tonsillectomy History of tooth extraction DENTAL IMPLANTS History of total shoulder replacement RIGHT Hx of hammer toe correction Family History Father Diabetes Social History Smoking Status: Never smoker Second Hand Exposure: No; Hx Alcohol Use: Yes Alcohol type: beer Hx Substance Use: No Preferred Language: [place] Communication Ability: Effective 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 Physical Exam On physical examination of the left hip, she has pain with any range of motion of the hip. She has decreased range of motion and significant pain with forced internal and external rotation. She walks with a very antalgic gait and has difficult time getting up on the exam table.. Constitutional WD/WN, vitals as above Eyes PERRL, conjunctivae normal, anicteric sclerae ENMT external ear and nose normal, oropharynx normal Neck trachea midline, no thyromegaly Respiratory normal respiratory effort Cardiovascular RRR, no murmur, no edema Gastrointestinal (Abdomen) normal bowel sounds, soft, nontender, no hepatosplenomegaly Psychiatric A+Ox3, euthymic affect Results & Data Results & Data Laboratory Results . Diagnostic Findings X-rays of the left hip do show signs of advanced osteoarthritis. MRI images of the left hip do show signal abnormality throughout the entire femoral head.. PG Care Time/CCT Total # of Minutes Spent Total Time Spent with Patient: Total time spent is greater than 50% in coordination of care (as documented) at patient's floor/unit and/or counseling patient: Coding Level of Care Code None Diagnoses Avascular necrosis of bone of left hip M87.052
[2021-03-26] MEDS ORDERED: LR 500ML BOLUS, THEN 15ML/HR IV SCH (06:00)
[2021-03-26] MEDS ORDERED: GABAPENTIN 300 MG CAP PO SCH (06:00)
[2021-03-26] MEDS ORDERED: TRANEXAMIC ACID 1,000 MG **IV Intra-op IV SCH (06:00)
[2021-03-26] MEDS ORDERED: ceFAZolin 1000MG 1,000 MG/7.5 ML SYR IV SCH (06:00)
[2021-03-26] MEDS ORDERED: ROPIVACAINE 0.5% HCL/PF 150 MG, BUPIVACAINE 0.75% MPF 20 ML, EPINEPHrine 30MG/30ML (OR ... INSTIL SCH (06:00)
[2021-03-26] MEDS ORDERED: dexAMETHasone 4 MG TAB PO SCH (06:00)
[2021-03-26] MEDS ORDERED: FAMOTIDINE 20 MG TAB PO SCH (06:00)
[2021-03-26] MEDS ORDERED: ACETAMINOPHEN 500 MG TAB PO SCH (06:00)
[2021-03-26] MEDS ORDERED: LR 60ML/HR IV SCH (06:00)
[2021-03-26] MEDS ORDERED: TRANEXAMIC ACID 1,000 MG **IV Pre-op IV SCH (06:00)
[2021-03-26] MEDS ORDERED: ATROPINE SULFATE 0.1 MG/ML 10ML SYR IV PRN (06:27)
[2021-03-26] MEDS ORDERED: ePHEDrine sulfate 50 MG/ML AMP IV PRN (06:27)
[2021-03-26] MEDS ORDERED: ONDANSETRON INJ 2 MG/ML 2 ML VIAL IV PRN ×2 (06:27→09:25)
[2021-03-26] MEDS ORDERED: fentaNYL citrate 100 MCG/2 ML VIAL IV PRN (06:27)
[2021-03-26] MEDS ORDERED: BUPIVACAINE 0.5 % 5 MG/1 ML PF 10ML VIAL ONE (06:29)
[2021-03-26] MEDS ORDERED: ORTHO JOINT ANESTHETIC ONE (06:34)
[2021-03-26] MEDS ORDERED: MIDAZOLAM HCL 1 MG/ML 2ML VIAL ONE (06:39)
--- NOTE | 2021-03-26 06:44 | History & Physical Bridge Note ---
Date of Service March 26, 2021 History & Physical Bridge Note I have examined the patient, reviewed the History & Physical and in the interval since the performance of the History & Physical I have noted the following changes of clinical significance: no changes noted
[2021-03-26] MEDS ORDERED: LIDOCAINE 2% 2 ML VIAL/AMP(20MG/ML) INFIL ONE (07:20)
[2021-03-26] MEDS ORDERED: PROPOFOL IV EMULSION 10 MG/ML 20 ML VIAL IV ONE ×2 (07:20→07:57)
--- NOTE | 2021-03-26 08:10 | Operative Report ---
PG Post Operative Report Pre & Post Diagnosis Operation Date: 03/26/21 07:00 Pre-Op Diagnosis: Degenerative Joint Disease Left Hip Post-Op Diagnosis: Degenerative Joint Disease Left Hip I identified the patient and participated in the time-out.: Yes Procedure Operation Date: 03/26/21 07:00 Actual Procedures p Left Anterior Total Hip Arthroplasty, Uncemented(Left) - Josh Torres DO Surgeon Josh Torres, Assembler Tester Josh Andrea PAC Estimated Blood Loss 150 Findings Consistent with Post-Op Diagnosis Specimens Left femoral head Complications none Disposition Disposition: Recovery Room Indications Sherita is a pleasant 70-year-old female who is been dealing with a 6-week history of severe increasing left hip pain. MRI and clinical examination were diagnostic for avascular necrosis or transient osteoporosis of the left hip. After failing conservative treatment, she elected proceed with a left anterior total hip arthroplasty. Description of Procedure Implants used I used a ZimmerBiomet total hip arthroplasty system with a size 3 standard offset Avenir Complete stem, a 52 mm G7 cup with a 25mm screw, an E1 polyethylene liner, a 36 mm ceramic head with a -3.5 neck. Sherita arrived at the hospital for the above procedure. She was seen in the preoperative holding area and the operative extremity was identified and signed. She was given a spinal anesthetic, a preoperative antibiotic, and TXA. She was then taken back to the operating room and laid on the table in the supine position. She was given basic sedation. The operative leg was secured to a Puristst leg positioner. The hip was then prepped and draped in sterile fashion. A timeout was done and the patient and the operative extremity was properly identified. An anterior approach was used. Dissection was taken down through the fascia and the tensor muscle belly was retracted laterally and the rectus was retracted medially. The circumflex vessels were identified and ligated. The capsule was then incised and tagged for later repair. The femoral neck was then cut and the femoral head was removed. The acetabulum was exposed. Time was spent doing a complete circumferential labral release. Sequential reaming of the acetabulum up to a size 51 reamer was done. Final reamings were done under fluoroscopy to ensure appropriate version. A Biomet 52 mm G7 cup was then impacted into place. A single 25 mm screw was placed. The E1 polyethylene liner was then snapped into place. Surrounding soft tissues were then injected with 100 cc of an orthopedic pain control cocktail. The proximal femur was then exposed. Sequential broaching up to a size 3 broach was done. Off that broach a size 36 head with a -3.5 neck was trialed. The hip was reduced and fluoroscopic images showed anatomic alignment of the implants in acceptable length. The broach was removed. The final size 3 standard offset Avenir Complete stem was then impacted into place. A ceramic 36 mm head with a -3.5 neck was then impacted onto the stem and the hip was reduced. Final fluoroscopic images showed anatomic alignment of the hip. The capsule was then closed with #1 Vicryl suture. A dilute betadyne lavage was then done for 3 minutes. The joint was then irrigated with normal saline solution. The fascia was closed with #1 PDS suture. Skin was closed with 2-0 Vicryl, dio, and a Silverlon dressing. She was then transferred to a hospital bed and taken to the post anesthesia care unit in stable condition. She tolerated the procedure well. Josh Andrea PA-C, was present for the entire procedure. He was critical for patient positioning, prepping, draping, retraction exposure, wound closure and application of sterile dressing. I attest to the content of the Intraoperative Record and any orders documented therein. Any exceptions are noted below.
--- NOTE | 2021-03-26 08:26 | Fluoroscopy Report ---
FL hip LT 1V CLINICAL HISTORY: Left anterior total hip arthroplasty. COMPARISON STUDY: None. FLUOROSCOPY TIME: 17 seconds. FINDINGS: 2 fluoroscopic spot images of the left hip demonstrate a left total arthroplasty. The hardw are appears intact. No fracture or dislocation. IMPRESSION: Fluoroscopy provided for left total hip arthroplasty. ACT 112: Negative or not required by law. Electronically signed by: Marcelino Gan M.D. 03/26/2021 8:25 AM
--- NOTE | 2021-03-26 08:50 | XRay Report ---
XR hip 1V LT w pelvis CLINICAL HISTORY: IN PACU - A/P PELVIS and LATERAL HIP COMPARISON: None. Correlation is made with MR of the pelvis and left hip performed on February 22, 2021. DISCUSSION: Interval placement of left prosthetic hip joint which appear to be in normal position. Subcutaneous emphysema and skin dio are seen. IMPRESSION: Postoperative changes as detailed above. ACT 112: Negative or not required by law. The above report was generated using voice recognition software. It may contain grammatical, syntax o r spelling errors. Electronically signed by: Miracle Jiang DO 03/26/2021 8:49 AM
[2021-03-26] MEDS ORDERED: MAGNESIUM HYDROXIDE SUSP 30 ML UDC PO PRN (09:25)
[2021-03-26] MEDS ORDERED: HYDROmorphone INJ 0.5 MG/0.5 ML SYR IV PRN (09:25)
[2021-03-26] MEDS ORDERED: VALSARTAN/HCTZ 320/12.5 MG TAB PO SCH (09:25)
[2021-03-26] MEDS ORDERED: NALOXONE HCL 0.4 MG/1 ML VIAL/CARP IV PRN (09:25)
[2021-03-26] MEDS ORDERED: bisacodyL 10 MG SUPP PR PRN (09:25)
[2021-03-26] MEDS ORDERED: NON-FORMULARY MEDICATION (Wheeled Walker misc) SCH (09:25)
[2021-03-26] MEDS ORDERED: METOCLOPRAMIDE HCL INJ 5 MG/ML 2 ML VIAL IV PRN (09:25)
[2021-03-26] MEDS: FLUTICASONE PROPIONATE NA SPR 16 GM BTL SCH (10:27)
[2021-03-26] MEDS: HYDROXYCHLOROQUINE SULFATE 200 MG TAB PO SCH (10:28)
[2021-03-26] MEDS: LORATADINE 10 MG TAB PO SCH (10:28)
[2021-03-26] MEDS: ASPIRIN 81 MG ECTAB PO SCH ×2 (10:28→22:21)
[2021-03-26] MEDS: DOCUSATE SODIUM 100 MG CAP PO SCH ×2 (10:28→22:22)
[2021-03-26] MEDS: hydroCHLOROthiazide 25 MG TAB PO SCH (10:29)
[2021-03-26] MEDS: MULTIVITAMIN TAB PO SCH (10:29)
[2021-03-26] MEDS: METHOCARBAMOL 750 MG TABLET PO SCH ×4 (10:30→22:19)
[2021-03-26] MEDS: VENLAFAXINE HCL 37.5 MG TAB PO SCH ×3 (10:31→22:20)
[2021-03-26] MEDS: VALSARTAN 80 MG TAB PO SCH (10:31)
[2021-03-26] MEDS: SODIUM CHLORIDE 0.9% 1000ML 1,000 ML IV SCH ×2 (10:35→23:24)
--- NOTE | 2021-03-26 11:56 | Anesthesiology Progress Note ---
Date of Service March 26, 2021 Anesthesia Post Procedure Vital Signs Vital Signs: Temp Pulse Pulse Resp BP BP Pulse Ox 03/26/21 11:24 97.7 F 79 16 105/67 96 03/26/21 10:24 97.7 F 76 16 114/72 96 03/26/21 09:45 97.5 F L 68 15 113/73 100 03/26/21 09:15 97.3 F L 69 16 125/73 98 03/26/21 08:55 72 16 138/69 99 03/26/21 08:45 72 16 124/72 99 03/26/21 08:35 74 16 118/68 100 03/26/21 08:26 97.2 F L 74 16 114/63 100 03/26/21 06:03 98.1 F 86 16 136/75 98 Pain Intensity Left Hip: Pain Intensity: 5 Transfer of Care Handoff Completed per policy Notes Mental Status: alert / awake / arousable and participated in evaluation Patient Amnestic to Procedure: Yes Nausea / Vomiting: adequately controlled Pain: adequately controlled Airway Patency, RR, SpO2: stable & adequate BP & HR: stable & adequate Hydration State: stable & adequate Neuraxial Anesthesia: was administered and sensory block is resolving Anesthetic Complications: no major complications apparent and Pt Satisfied with anesthetic care
[2021-03-26] MEDS: KETOROLAC TROMETHAMINE 15 MG/ML VIAL IV SCH ×2 (12:59→17:50)
[2021-03-26] MEDS: ACETAMINOPHEN 500 MG TAB PO SCH ×2 (14:50→22:22)
[2021-03-26] MEDS: ceFAZolin 2000MG 2,000 MG/15 ML SYR IV SCH (16:21)
[2021-03-26] MEDS: oxyCODONE HCL IR 5 MG TAB (IMMEDIATE RELEASE) PO PRN (19:58)
[2021-03-26] MEDS: SENNA 8.6 MG TAB PO SCH (22:20)
[2021-03-26] MEDS: busPIRone 5 MG TAB PO SCH (22:22)
[2021-03-26] MEDS: ATORVASTATIN 20 MG TAB PO SCH (22:23)
[2021-03-27] MEDS: ceFAZolin 2000MG 2,000 MG/15 ML SYR IV SCH (00:07)
[2021-03-27] MEDS: KETOROLAC TROMETHAMINE 15 MG/ML VIAL IV SCH ×4 (00:08→18:04)
[2021-03-27] MEDS: oxyCODONE HCL IR 5 MG TAB (IMMEDIATE RELEASE) PO PRN ×5 (00:09→19:41)
[2021-03-27] MEDS: METHOCARBAMOL 750 MG TABLET PO SCH ×6 (01:25→21:23)
[2021-03-27] MEDS: ACETAMINOPHEN 500 MG TAB PO SCH ×3 (05:50→21:24)
--- NOTE | 2021-03-27 07:53 | Orthopedic Progress Note ---
Date of Service March 27, 2021 Assessment & Plan (1) Status post left hip replacement: Overall she is doing fairly well. She is having too much pain in the left hip. She did not get much sleep last night. She will be seen by physical therapy today for ambulation and range of motion exercises. We will keep her in the hospital today for therapy and pain control. We will plan to discharge her to home tomorrow. Shaka Magallon was seen and examined at bedside this morning. Overall she is doing fairly well. She is not having much pain in the left hip. She has been up and ambulating to the bathroom but that is about it. She did not get much sleep last night. She has no other complaints.. Review of Systems All systems reviewed & are unremarkable except as noted in HPI & below. Physical Exam On physical examination of her left hip, the dressing is clean and dry. Her leg lengths are equal. She has active dorsiflexion plantarflexion of her left ankle.. Results & Data Results & Data Laboratory Results . Diagnostic Findings Postoperative x-rays of the left hip show the prosthesis to be in anatomic alignment without any evidence of fracture, dislocation, or loosening. PG Care Time/CCT Total # of Minutes Spent Total Time Spent with Patient: Total time spent is greater than 50% in coordination of care (as documented) at patient's floor/unit and/or counseling patient: Coding Level of Care Code 77454 Post Operative Follow-Up Diagnoses Status post left hip replacement Z96.642
[2021-03-27] MEDS ORDERED: dexAMETHasone 4 MG TAB PO SCH (08:00)
[2021-03-27] MEDS: PANTOprazole 40 MG TAB PO SCH (08:42)
[2021-03-27] MEDS: LORATADINE 10 MG TAB PO SCH (08:43)
[2021-03-27] MEDS: DOCUSATE SODIUM 100 MG CAP PO SCH ×2 (08:46→21:23)
[2021-03-27] MEDS: FLUTICASONE PROPIONATE NA SPR 16 GM BTL SCH (08:47)
[2021-03-27] MEDS: ASPIRIN 81 MG ECTAB PO SCH ×2 (08:47→21:22)
[2021-03-27] MEDS: hydroCHLOROthiazide 25 MG TAB PO SCH (08:48)
[2021-03-27] MEDS: HYDROXYCHLOROQUINE SULFATE 200 MG TAB PO SCH (08:49)
[2021-03-27] MEDS: MULTIVITAMIN TAB PO SCH (08:50)
[2021-03-27] MEDS: VALSARTAN 80 MG TAB PO SCH (08:50)
[2021-03-27] MEDS: VENLAFAXINE HCL 37.5 MG TAB PO SCH ×3 (08:51→21:24)
[2021-03-27] MEDS ORDERED: MELATONIN 3 MG TAB PO PRN (13:38)
[2021-03-27] MEDS: SENNA 8.6 MG TAB PO SCH (21:22)
[2021-03-27] MEDS: ATORVASTATIN 20 MG TAB PO SCH (21:23)
[2021-03-27] MEDS: busPIRone 5 MG TAB PO SCH (21:23)
[2021-03-28] MEDS: oxyCODONE HCL IR 5 MG TAB (IMMEDIATE RELEASE) PO PRN ×3 (00:23→11:33)
[2021-03-28] MEDS: KETOROLAC TROMETHAMINE 15 MG/ML VIAL IV SCH ×2 (00:24→05:26)
[2021-03-28] MEDS: METHOCARBAMOL 750 MG TABLET PO SCH ×3 (04:12→10:22)
[2021-03-28] MEDS: ACETAMINOPHEN 500 MG TAB PO SCH (05:26)
--- NOTE | 2021-03-28 08:17 | Orthopedic Progress Note ---
Date of Service March 28, 2021 Assessment & Plan (1) Status post left hip replacement: Overall she is doing fairly well. She is working well with therapy. She is on aspirin for DVT prophylaxis. She has been on chronic narcotic use before the procedure which could be a reason why she is having the soreness postoperatively. She is orthopedically stable for discharge today. She can follow-up with orthopedics in 2 weeks. Shaka Magallon was seen and examined at bedside this morning. She is having some soreness in the hip which has been working well with physical therapy. She was able to get some sleep last night. She has no other complaints.. Review of Systems All systems reviewed & are unremarkable except as noted in HPI & below. Physical Exam On physical examination of the left hip, the dressing is clean and dry. Her leg lengths are equal. She has active dorsiflexion plantarflexion of her left ankle.. Results & Data Results & Data Laboratory Results . Diagnostic Findings . PG Care Time/CCT Total # of Minutes Spent Total Time Spent with Patient: Total time spent is greater than 50% in coordination of care (as documented) at patient's floor/unit and/or counseling patient: Coding Level of Care Code 26204 Post Operative Follow-Up Diagnoses Status post left hip replacement Z96.642
--- NOTE | 2021-03-28 08:19 | Discharge Summary ---
Date of Service March 28, 2021 Admission HPI (Per Admitting) Sherita is a pleasant 70-year-old female whose been dealing with a month-long history of left hip pain. It came on suddenly and has been very severe. X-ray showed signs of arthritis of the hip. An MRI showed diffuse abnormal signal and enhancement in the femoral head and neck. Sed rate and CRP were negative. She is unable to ambulate with the hip. After discussions in the office, she has elected proceed with a left anterior total hip arthroplasty.. Admission Exam (Per Admitting) On physical examination of the left hip, she has pain with any range of motion of the hip. She has decreased range of motion and significant pain with forced internal and external rotation. She walks with a very antalgic gait and has difficult time getting up on the exam table.. Principal Diagnosis Same as "Discharge Diagnosis" noted below under Discharge Instructions. Discharge Exam On physical examination of the left hip, the dressing is clean and dry. Her leg lengths are equal. She has active dorsiflexion plantarflexion of her left ankle.. Discharge Data Procedures Performed Operation Date: 03/26/21 07:00 Actual Procedures p Left Anterior Total Hip Arthroplasty, Uncemented(Left) - Josh Torres DO Ordered Studies 03/26/21 07:00 FL hip LT 1V Routine Hospital Course (1) Status post left hip replacement: On March 26, 2021 Sherita arrived at [facility] and underwent a left hip replacement without complication. She had a spinal anesthetic. Postoperatively she was started on aspirin for DVT prophylaxis and transferred to the general orthopedic floors. Her hospital course was uneventful. On postop day #1 her vital signs are stable. She was having some soreness in the hip. She worked well with physical therapy. On postop day #2 she continued to have some hip pain. She was seen again by physical therapy. S he was stable. She was discharged home. She will follow-up with orthopedics in 2 weeks. PG Care Time/CCT Total # of Minutes Spent Total Time Spent with Patient: Total time spent is greater than 50% in coordination of care (as documented) at patient's floor/unit and/or counseling patient: Discharge Plan Discharge Items Patient Disposition: Home - Home Health Services Reason For Visit: DJD Left Hip Discharge Diagnosis: Left hip replacement Activity: As commented below Non-emergency contact: Surgeon Call non-emergency contact if: your wound has increased redness and your wound has increased drainage Follow-up/Referrals: Treasure Ann MD [Primary Care Provider] - Diet: Regular Addtl Attending Provider Instructions: Activity and Therapy Recommendations: * If you are using [facility] then therapy will be provided at your home until they feel you have accomplished all of your goals. * If you are using [facility] then Physical Therapy will be provided until they feel you are ready to start Outpatient Physical Therapy. * If you are not using home therapy then Outpatient Physical Therapy should start about 3-5 days from your day of surgery. Therapy will last about 6-10 weeks * You were shown a series of exercises in the hospital. Do these exercises three times each day including the exercises you were shown in physical therapy. * Get up and walk several times each day.~ For the first four weeks, try not to stand or walk for more than one hour at a time. If you do stand or walk for more than one hour, you will not hurt anything, but your leg will likely swell.~~ * As you feel comfortable, you may change from the walker or crutches to a cane and~then to independent walking. Medications: * Narcotic You will likely be sent home from the hospital with a prescription for the narcotic pain medication that worked best throughout your stay. * Aspirin Most patients will be required to take Aspirin 81mg twice a day for 6 weeks after surgery. This is obtained [id number] and a prescription is not necessary. * Other medications may be prescribed for specific circumstances. If you have any questions, please call the office at . * Resume previous home medications unless otherwise instructed TEDs/Elastic Stockings: The white elastic stockings help limit swelling and prevent blood clots from forming in your legs. The more you wear them, the more they work. Wear them for six weeks. Dressing Care: Leave the Silverlon dressing in place for 7 days. After 7 days you may remove the dressing. If the incision is not draining then you may leave the dio open to air. If there is a little bit of drainage or if the dio are getting stuck on your clothing then cover the incision with a dry dressing. The dio will be removed at your 2 week follow-up appointment. Showering: You may shower with the Silverlon dressing in place. Do not let the shower spray hit the dressing directly. Pat the Silverlon dressing dry. If the dressing becomes wet underneath, then simply remove the dressing. Keep the incision dry until you are 7 days out from the day of surgery. After 7 days you may remove the Silverlon dressing and shower with the dio exposed. Let soapy water run over the dio and pat them dry. Do not scrub or soak the incision. Things To Watch For: * Drainage from the incision site that occurs more than one week after your surgery. * Increased redness at the incision site. * Fever above 102 degrees Fahrenheit. * Unusual chest pain or shortness of breath. * Call [facility] at with any of the above problems Follow-Up Visit: Follow-up with Dr. Torres's PA (Josh Andrea) 2-3 weeks after your day of surgery. He will remove your dio and answer any questions. If you have any additional questions or concerns, Dr Torres is usually in the office at the same time and will be available An appointment was probably scheduled when you signed-up for surgery in the office. If you have any questions call Office Instructions: More detailed instructions as well as Frequently Asked Questions were provided in a folder by our office when you signed-up for surgery. Please review these instructions when you get home. If you have any further questions or concerns, please feel free to call the office at [phone] Pending Studies at Discharge: No Stand-Alone Forms: [facility], Smoking Cessation Medications and DC Order Prescriptions: Continued loratadine [Claritin] 10 mg tablet 10 mg PO QAM RF: 0 buspirone 5 mg tablet 5 mg PO PM RF: 0 celecoxib 200 mg capsule 200 mg PO BID RF: 0 valsartan-hydrochlorothiazide [Diovan HCT] 320-12.5 mg tablet 1 tab PO QAM RF: 0 fluticasone propionate [Children's Flonase Allergy Rlf] 50 mcg/actuation spray,suspension 1 spray intranasal DAILY RF: 0 hydroxychloroquine 200 mg tablet 400 mg PO QAM RF: 0 atorvastatin [Lipitor] 20 mg tablet 20 mg PO PM RF: 0 methocarbamol 750 mg tablet 750 mg PO Q4H RF: 0 esomeprazole magnesium [Nexium] 40 mg capsule,delayed release(DR/EC) 40 mg PO QAM RF: 0 venlafaxine 75 mg tablet 75 mg PO TID RF: 0 (DME) Wheeled Walker Misc See Rx Instructions .MEDSUPPLY Qty: 1 RF: 0 multivitamin Tablet 1 tab PO QAM RF: 0 ascorbic acid (vitamin C) [Vitamin C] 1,000 mg Tablet 1 g PO QAM RF: 0 milk thistle 200 mg Capsule 200 mg PO DAILY RF: 0 calcium citrate [Citracal] 200 mg (950 mg) Tablet 200 mg PO BID RF: 0 Fish Oil Capsule 1,000 mg PO DAILY RF: 0 cholecalciferol (vitamin D3) [Vitamin D3] 50 mcg (2,000 unit) Tablet 50 mcg PO DAILY RF: 0 [place] 1 dose PO DAILY RF: 0 oxycodone-acetaminophen [Percocet] 5-325 mg tablet 1 tab PO Q6H PRN (Reason: pain) Qty: 60 RF: 0 Changed aspirin [Adult Aspirin Regimen] 81 mg tablet,delayed release (DR/EC) 81 mg PO BID 42 Days Qty: 0 RF: 0 Discontinued hydrocodone-acetaminophen 5-325 mg Tablet 1 tab PO Q4H PRN (Reason: Pain) RF: 0 Discharge Orders: Discharge Order (Routine); Ordered 03/28/21 Ordered By: Josh Torres Admission Data Admit Date/Time: 03/26/21 08:30 Attending Provider: Josh Torres Admit Provider: Josh Torres Primary Care Provider: Treasure Ann
[2021-03-28] MEDS: ASPIRIN 81 MG ECTAB PO SCH (08:21)
[2021-03-28] MEDS: DOCUSATE SODIUM 100 MG CAP PO SCH (08:21)
[2021-03-28] MEDS: hydroCHLOROthiazide 25 MG TAB PO SCH (08:22)
[2021-03-28] MEDS: LORATADINE 10 MG TAB PO SCH (08:22)
[2021-03-28] MEDS: PANTOprazole 40 MG TAB PO SCH (08:22)
[2021-03-28] MEDS: FLUTICASONE PROPIONATE NA SPR 16 GM BTL SCH (08:23)
[2021-03-28] MEDS: VENLAFAXINE HCL 37.5 MG TAB PO SCH (08:24)
[2021-03-28] MEDS: MULTIVITAMIN TAB PO SCH (08:24)
[2021-03-28] MEDS: HYDROXYCHLOROQUINE SULFATE 200 MG TAB PO SCH (08:24)
[2021-03-28] MEDS: VALSARTAN 80 MG TAB PO SCH (08:25)
== END 2021-03-28 13:03 | disposition home health service (06) ==
LOC: ASU 05:28 → 3E 05:28